=== PATIENT | female | born 1995 | race African-American/Black ===

== ENCOUNTER 2017-12-18 18:35 | Emergency (ER) | payer SELFPAY ==
[~2017-12-18] VITALS: Ht 175.3 cm; Wt 81.6 kg
[2017-12-18 18:38] VITALS: Ht 175.3 cm; Wt 81.6 kg
[2017-12-18 20:45] VITALS: BP 107/71
== END 2017-12-18 20:50 | disposition home or self-care (01) ==
LOC: ED 18:35
DX: F41.9 Anxiety disorder, unspecified (principal)

== ENCOUNTER 2018-03-30 06:17 | Emergency (ER) | payer SELFPAY ==
[~2018-03-30] VITALS: Ht 175.3 cm; Wt 83.0 kg
[2018-03-30 06:25] VITALS: Ht 175.3 cm; Wt 83.0 kg
[2018-03-30 09:16] LABS: BASOPHIL % 0.6 % (0-2); PLATELET COUNT 303 x10^3mcL (130-400); RED CELL DISTRIBUTION WIDTH 12.8 % (11.5-14.5)
[2018-03-30 09:27] LABS: CALCIUM 9.2 mg/dL (8.5-10.1); CARBON DIOXIDE 27.4 mmol/L (21-32); CHLORIDE SERUM 102 mmol/L (98-107); CREATININE SERUM 0.6 mg/dL (0.6-1.0); GFR1 > 60 mL/min; GLUCOSE SERUM 80 mg/dL (74-106); POTASSIUM SERUM 4.4 mmol/L (3.5-5.1); SODIUM SERUM 138 mmol/L (136-145)
[2018-03-30 09:32] LABS: ALBUMIN 3.9 g/dL (3.4-5.0); ALKALINE PHOSPHATASE 58 U/L (46-116); ALT/SGPT 18 U/L (14-59); AST/SGOT 21 U/L (15-37); BILIRUBIN TOTAL 0.8 mg/dL (0.20-1.00); LIPASE 180 IU/L (73-393)
[2018-03-30 10:11] VITALS: BP 115/55
== END 2018-03-30 10:11 | disposition home or self-care (01) ==
LOC: ED 06:17
PROVIDERS: Emergency Medicine
DX: R11.2 Nausea with vomiting, unspecified (principal); F41.9 Anxiety disorder, unspecified
CPT/HCPCS: 36415; G0480; Q0162